=== PATIENT | female | born 1945 | race Caucasian/White ===

== ENCOUNTER 2018-11-16 09:44 | Day surgery (SDC) | payer MEDICARE, OTHER ==
--- NOTE | 2018-11-01 13:37 | CR ---
DATE OF CONSULTATION: 10/31/[address] Hannah Aguirre for a dilation and curettage (D and C) [facility] 11/16/[address] Aguirre: Thank you for asking me to see Ms. Ondina Todd in consultation prior to her hysteroscopy D and C. As you know, Ms. Todd is a 72-year-old female who has enjoyed quite good health but has a history of osteoporosis, nephrolithiasis, hyperlipidemia, who developed breakthrough bleeding. In December of 2017, the patient was treated with natural estrogen pellets with significant improvement in her hot flashes, night sweats, insomnia, and dyspareunia. In February of 2018, she started having breakthrough bleeding and saw a bicycle inspector in [place], had a uterine biopsy which was benign, but the endometrial lining was thickened. A repeat ultrasound was ordered from her [facility] provider 09/19/2018 with thickened endometrium, fluid in the endocervical canal, possible endocervical polyp. The patient reports her breakthrough bleeding has resolved. She has had no further bleeding since mid-September. The patient is very fit, walking four miles a day with no chest pain, palpitations, syncope, presyncope. The patient also consulted with Dr. Aguirre regarding her stress incontinence and is starting physical therapy in [place] on November 29. The patient had been having right low back pain radiating to her right lower extremity. Had a physical therapy times 3 weeks with resolution of her pain. Maintains her stretches, doing them several times a week. The patient has nephrolithiasis. She has had no flank pain or hematuria. The patient has prehypertension. Denies chest pain or palpitations. The patient had rectal bleeding March 2018 with a drop in her hemoglobin from 12 to 10, ultimately felt to be related to hemorrhoids. She has had no recurrent bleeding. The patient has essential tremor of her head, chronic, stable, and does not bother her. Worse when she is tired or stressed. The patient otherwise denies any fevers or chills, chest pain or shortness of breath, nausea, vomiting, change of bowel. PAST MEDICAL HISTORY: 1. Hyperlipidemia. 2. Hyperglycemia. 3. Prehypertension. 4. Adenomatous colonic polyps with last colonoscopy being 08/23/2017. Recommendation to repeat 5 years. 5. Osteoporosis. The patient is on alendronate. Previous drug holidays. 6. Fibrocystic breast disease. 7. History of breakthrough bleeding on hormone replacement therapy (HRT). 8. Atypical chest pain. 9. Reactive airway disease, positive methacholine challenge 2003. 10. Nephrolithiasis 2012 with a recurrence in 2015. 11. Goiter. Negative biopsy times two in 2007. Return as needed. 12. Essential tremor. 13. Pneumonia 02/03/2018. 14. Rectal bleeding March 2018 with sigmoidoscopy showing only hemorrhoids. 15. Breakthrough bleeding February 2018 with negative endometrial biopsy, started after being on natural estrogen pellet. MEDICATIONS: She is on alendronate 70 mg weekly, calcium plus D supplement, a vitamin for bone, hair, nail. She has no known drug allergies. SOCIAL HISTORY: Retired. Never smoked. Alcohol occasionally. FAMILY HISTORY: Father hypertension, hyperlipidemia, of a stroke at 102. Mother had hypertension, hyperlipidemia, dementia, congestive heart failure (CHF), heart attack, of CHF at 94. A brother hypertension. Sister hypertension, hyperlipidemia, emphysema, essential tremor, and a premature heart attack at 58. PHYSICAL EXAMINATION: No acute distress. Vital signs are weight 118 with a body mass index (BMI) of 20, oxygen (O2) saturation after exertion 96%, blood pressure 112/68 with a heart rate of 65. HEENT examination: Head is normocephalic. Neck is supple. Pupils equal, reactive to light. Extraocular movements are intact. She wears eyeglasses. She has a scant amount of ceruminosis. Tongue is midline. Posterior pharynx without inflammation. Neck is supple. No thyromegaly, jugular venous distention (JVD), carotid bruits. Respiratory: Clear to auscultation and percussion. Cardiovascular: Regular rate and rhythm. No murmur, rub, gallop. Abdomen: Normoactive bowel sounds, soft, nontender. No hepatosplenomegaly. Extremities: No cyanosis, clubbing, or edema. She has mild to moderate OA changes of the distal interphalangeal (DIP) joints. Dermatologic: Multiple seborrheic keratoses. Gynecologic: Deferred. Neurologic: Alert and oriented. Head tremor not appreciated. LABORATORY DATA: Electrocardiogram (EKG) 10/31/2018, normal sinus rhythm, rate of 67, normal [place], QRS, QTC, late R-wave progression, some repolarization changes but no atrial or ventricular hypertrophy. 10/31/2018, she has a normal CBC med profile. IMPRESSION: Ms. Ondina Todd is a 72-year-old female with multiple cardiovascular risk factors, including prehypertension, hyperglycemia, hyperlipidemia, and age. Has no signs or symptoms indicative of cardiovascular ischemia. [place] to be optimized and at low risk for cardiovascular complications for the proposed surgical intervention which can be minimized by the following: PROBLEMS: 1. Prehypertension. Diet, exercise, salt restriction. 2. Hyperglycemia. Diet, exercise, carbohydrate restriction. 3. Hyperlipidemia. High ratios. Continue to monitor. 4. Essential tremor, stable. Minimizes caffeine. 5. Leukopenia, improved, within normal limits. 6. Nephrolithiasis. Push fluids. No recurrence. 7. Stress incontinence. To start physical therapy in November. 8. Colonic polyps. Last colonoscopy in 2018. Repeat 5 years. 9. Hemorrhoidal bleed. No further recurrence. 10. Postmenopausal bleeding, resolved. Await hysteroscopy and D and C. 11. Osteoporosis. Hold alendronate calcium until the a.m. of surgery. 12. Low back pain, right sciatica. Continue home regimen. HEALTH MAINTENANCE: She has already had her flu shot. Thank you very much for this consultation. Please call with questions or concerns.
[~2018-11-16] VITALS: Ht 160 cm; Wt 52.8 kg
[~2018-11-16 09:44] MED LIST: ALEN70TA74 PO; ASPI81TA26 PO; CALC-190 PO; HAIR1CHW PO; LIDOCAINE 1% MDV 20ML VIAL SQ PRN; LR 1,000 ML IV ONE
[2018-11-16] MEDS ORDERED: KETOROLAC 60 MG/2 ML VIAL (J1885) As Ordered ONE ×2 (10:03→10:08)
[2018-11-16] MEDS ORDERED: METOCLOPRAMIDE INJ 10MG/2ML VIAL (J2765) As Ordered ONE (10:03)
[2018-11-16] MEDS ORDERED: dexameTHASONE 4 MG/ML 1ML VIAL (J1100) As Ordered ONE (10:03)
[2018-11-16] MEDS ORDERED: PROPOFOL 200 MG/20 ML VIAL As Ordered ONE (10:09)
[2018-11-16] MEDS ORDERED: LIDOCAINE 2% INJ 100 MG/5 ML SDV (FOR ANES.) As Ordered ONE (10:09)
[2018-11-16] MEDS ORDERED: MIDAZOLAM INJ 2 MG/2 ML VIAL (J2250) As Ordered ONE (11:04)
[2018-11-16] MEDS ORDERED: fentaNYL 100 MCG/2 ML INJECTION (J3010) As Ordered ONE (11:05)
[2018-11-16] MEDS ORDERED: ONDANSETRON 4MG/2ML VIAL (J2405) As Ordered ONE (12:07)
[2018-11-16] MEDS ORDERED: oxyCODONE 5MG TAB PO PRN (12:45)
[2018-11-16] MEDS ORDERED: METOCLOPRAMIDE INJ 10MG/2ML VIAL (J2765) IV PRN (12:45)
[2018-11-16] MEDS ORDERED: fentaNYL 100 MCG/2 ML INJECTION (J3010) IV PRN (12:45)
[2018-11-16] MEDS ORDERED: IBUPROFEN 600 MG TAB PO PRN (12:45)
[2018-11-16] MEDS ORDERED: LR 1,000 ML IV SCH ×2 (12:45)
[2018-11-16] MEDS ORDERED: ONDANSETRON 4MG/2ML VIAL (J2405) IV PRN (12:45)
--- NOTE | 2018-11-16 13:15 | RO ---
DATE OF SURGERY: 11/16/2018 PREOPERATIVE DIAGNOSES AND INDICATION FOR SURGERY: Postmenopausal bleeding and abnormal sonogram. POSTOPERATIVE DIAGNOSES: Postmenopausal bleeding and abnormal sonogram. PROCEDURE: Dilation and curettage (D and C), hysteroscopy, MyoSure resection. SURGEON: Hannah Aguirre MD PRICING SPECIALIST: ANESTHESIA: Laryngeal mask airway (LMA). BRIEF DESCRIPTION OF PROCEDURE AND FINDINGS: Ondina was brought to the operating room, where sufficient general LMA anesthesia was induced. She was prepped, draped, and positioned in the usual sterile fashion with the bladder emptied and the cervix grasped with a single-tooth tenaculum. Not unexpectedly, there is some mobility of the uterus under anesthesia. This atrophic cervix was carefully dilated in order to allow introduction of the MyoSure hysteroscope, following which the endometrial cavity was visualized, and some overgrowth of the endometrium was noted. There were some polypoid growths, but it seemed to be a fairly broad-spread overgrowth, not tremendously vascular __tissue____ but definitely more than is expected in a 72-year-old. MyoSure resection was carried out, as documented in the photographs. We were able to really resect the majority of the endometrium and some of the myometrial tissue, as well; and then curettage was carried out, and then the procedure was ended with all of that tissue sent to pathology, of course. ESTIMATED BLOOD LOSS FOR THE PROCEDURE: Maybe 3 mL. FLUID REPLACEMENT: Crystalloid. COMPLICATIONS: None. CONDITION AND DISPOSITION: Ondina tolerated the procedure well and was recovering in the recovery room in good condition. KAYLEN
[2018-11-16 13:40] VITALS: BP 134/61
== END 2018-11-16 13:50 | disposition home or self-care (01) ==
LOC: M SDC 09:44
PROVIDERS: ATTEND Obstetrics & Gynecology
DX: N95.0 Postmenopausal bleeding (principal); N85.00 Endometrial hyperplasia, unspecified; M81.0 Age-related osteoporosis without current pathological fracture; G25.0 Essential tremor; Z79.899 Other long term (current) drug therapy
CPT/HCPCS: 58558; 88305; J1100; J1885; J2250; J2405; J3010

== ENCOUNTER → 2020-07-07 | Outpatient (CLI) | payer MEDICARE, OTHER ==
[~2020-07-07] MED LIST changes: -ALEN70TA74 PO; +ALEN70TA82 PO; -LIDOCAINE 1% MDV 20ML VIAL SQ PRN; -LR 1,000 ML IV ONE
--- NOTE | 2020-07-07 08:34 | REPMRS ---
Patient History The patient states she has not had a clinical breast exam in over a year. Patient is postmenopausal and is nulliparous. No known family history of cancer. Patient states no breast complaints today. Patient has signed MRS History Sheet. Digital Woman Screen Mammo: July 07, 2020 - Exam #: [id number] Bilateral CC and MLO view(s) were taken. Technologist: Lissette Danielson, Technologist Prior study comparison: July 05, 2019, bilateral digital mammo screening bilat, performed at [facility]. July 03, 2018, bilateral digital mammo screening bilat, performed at [facility]. July 01, 2017, bilateral digital mammo screening bilat, performed at [facility]. FINDINGS: The breast tissue is heterogeneously dense. This may lower the sensitivity of mammography. The Volpara volumetric breast density category is: C. There are stable benign calcifications and a a small intramammary lymph node in the upper outer quadrant on the right. Vascular calcification is observed There is a moderate amount of heterogeneously dense fibroglandular tissue which is fairly symmetric. There is no interval development of dominant mass, architectural distortion, or grouped microcalcification typical of malignancy. There has been no change in the appearance of the mammogram from the prior studies. 3-D tomosynthesis shows no additional findings. Assessment: BI-RADS/ACR category 2 mammogram. Benign Findings. Recommendation Routine screening mammogram of both breasts in 1 year (for women over age 40). This patient's [facility] Lifetime Breast Cancer RIsk is estimated at 3.5 %. This mammogram was interpreted with the aid of an FDA-approved computer-aided dectection system. Electronically Signed By: Taras Wang MD 07/07/20 0834
== END ==
LOC: M WHC 07:50
PROVIDERS: ATTEND Internal Medicine
DX: Z12.31 Encounter for screening mammogram for malignant neoplasm of breast (principal)

== ENCOUNTER → 2021-07-08 | Outpatient (CLI) | payer MEDICARE, OTHER | LOC: M WHC 07:20 | PROVIDERS: ATTEND Obstetrics & Gynecology | DX: Z91.89 Other specified personal risk factors, not elsewhere classified (principal); N85.4 Malposition of uterus; N85.8 Other specified noninflammatory disorders of uterus; Z12.31 Encounter for screening mammogram for malignant neoplasm of breast; M81.0 Age-related osteoporosis without current pathological fracture; M85.89 Other specified disorders of bone density and structure, multiple sites ==

== ENCOUNTER → 2021-07-08 | Outpatient (CLI) | payer MEDICARE, OTHER | LOC: M WHC 07:22 | PROVIDERS: ATTEND Internal Medicine | DX: Z12.31 Encounter for screening mammogram for malignant neoplasm of breast (principal); M81.0 Age-related osteoporosis without current pathological fracture; M85.89 Other specified disorders of bone density and structure, multiple sites ==

== ENCOUNTER → 2021-07-20 | Outpatient (REF) | payer MEDICARE, OTHER ==
[2021-07-21 13:18] LABS: PERCENT SATURATION 32.4 % (13.2-45.0)
== END ==
LOC: M LAB REF 12:03
PROVIDERS: ATTEND Internal Medicine
DX: M54.41 Lumbago with sciatica, right side (principal); D64.9 Anemia, unspecified

== ENCOUNTER → 2021-07-28 | Outpatient (REF) | payer MEDICARE, OTHER | LOC: M SFHCDERM 16:30 | PROVIDERS: ATTEND Nurse Practitioner Family | DX: L57.0 Actinic keratosis (principal) | CPT/HCPCS: 11102; 17000; 88305; G0463 ==

== ENCOUNTER → 2021-08-19 | Outpatient (REF) | payer MEDICARE, OTHER ==
[2021-08-21 12:10] LABS: ANTINUCLEAR ANTIBODIES DIRECT Negative (Negative)
== END ==
LOC: M LAB REF 16:35
PROVIDERS: ATTEND Internal Medicine
DX: D69.6 Thrombocytopenia, unspecified (principal); M81.0 Age-related osteoporosis without current pathological fracture

== ENCOUNTER → 2021-09-15 | Outpatient (CLI) | payer MEDICARE, OTHER ==
[2021-09-15 10:17] LABS: BASO % 0.6 % (0.0-1.0); EOS # 0.1 10^3/uL (0.0-0.5); EOS % 1.5 % (0.0-3.0); HEMATOCRIT 41.9 % (36.0-47.0); HEMOGLOBIN 13.6 g/dl (12.0-15.5); LYMPH # 0.6 10^3/uL (1.5-5.0); LYMPH % 18.7 % (24.0-44.0); MEAN CORPUSCULAR HEMOGLOBIN 29.2 pg (27.0-33.0); MEAN CORPUSCULAR HGB CONC 32.5 g/dl (32.0-36.5); MEAN CORPUSCULAR VOLUME 89.9 fl (80.0-96.0); MONO # 0.3 10^3/uL (0.0-0.8); MONO % 8.8 % (2.0-8.0); NEUTROPHILS # 2.4 10^3/uL (1.5-8.5); NEUTROPHILS % 70.1 % (36.0-66.0); RED BLOOD COUNT 4.66 10^6/uL (4.00-5.40); WHITE BLOOD COUNT 3.4 10^3/uL (4.0-10.0)
[2021-09-15 11:02] LABS: PLATELET COUNT, AUTOMATED 76 10^3/uL (150-450)
[2021-09-15 12:16] LABS: HEPATITIS B SURFACE ANTIBODY NEGATIVE (POSITIVE); HEPATITIS C VIRUS ABY INDEX < 0.0 INDEX (<0.8); HIV 1&2 SCREEN CENTAUR NEGATIVE (NEGATIVE)
== END ==
LOC: M PLALAB 08:48
PROVIDERS: ATTEND Internal Medicine Hematology
DX: D69.3 Immune thrombocytopenic purpura (principal)

== ENCOUNTER → 2021-09-21 | Outpatient (REF) | payer MEDICARE, OTHER | LOC: M SFHCPLAZ 10:32 | PROVIDERS: ATTEND Internal Medicine Hematology | DX: D69.3 Immune thrombocytopenic purpura (principal) ==

== ENCOUNTER → 2021-11-16 | Outpatient (REF) | payer MEDICARE, OTHER ==
[2021-11-16 12:59] LABS: APPEARANCE, URINE MANUAL CLEAR (CLEAR); BILIRUBIN, URINE MANUAL NEGATIVE (NEGATIVE); BLOOD URINE MANUAL TRACE (NEGATIVE); COLOR, URINE MANUAL YELLOW (YELLOW); GLUCOSE, URINE (UA) MANUAL NEGATIVE (NEGATIVE); KETONE, URINE MANUAL NEGATIVE (NEGATIVE); LEUKOCYTE ESTERASE, URINE MAN NEGATIVE (NEGATIVE); NITRITE, URINE MANUAL NEGATIVE (NEGATIVE); PROTEIN, URINE MANUAL NEGATIVE (NEGATIVE); UROBILINOGEN, URINE MANUAL NORMAL (NORMAL)
[2021-11-16 13:08] LABS: INR 0.9; PROTHROMBIN TIME 12.6 SECONDS (12.7-14.5)
[2021-11-16 13:09] LABS: BACTERIA, URINE SMALL AMOUNT; HYALINE CAST, URINE NONE SEEN /lpf (0-1); PARTIAL THROMBOPLASTIN TIME 28.1 SECONDS (25.9-37.0); RBC, URINE 0-1 /hpf (0-3); SQUAMOUS EPITHELIAL CELL URINE SMALL AMOUNT /hpf (SMALL AMT); WBC, URINE 0-1 /hpf (0-3)
== END ==
LOC: M LAB REF 11:51
PROVIDERS: ATTEND Internal Medicine
DX: Z01.818 Encounter for other preprocedural examination (principal)

== ENCOUNTER → 2021-12-28 | Outpatient (CLI) | payer MEDICARE, OTHER | LOC: M LABSMTC 10:15 | PROVIDERS: ATTEND Anesthesiology | DX: Z01.812 Encounter for preprocedural laboratory examination (principal); Z11.52 Encounter for screening for COVID-19 ==

== ENCOUNTER 2021-12-30 13:25 | Day surgery (SDC) | payer MEDICARE, OTHER ==
[~2021-12-30] VITALS: Ht 161.3 cm; Wt 54.8 kg
[2021-12-30] MEDS ORDERED: LR 1,000 ML IV SCH ×2 (13:50→16:00)
[2021-12-30 14:11] LABS: HEMATOCRIT 41.7 % (36.0-47.0); HEMOGLOBIN 13.7 g/dl (12.0-15.5); MEAN CORPUSCULAR HEMOGLOBIN 28.8 pg (27.0-33.0); MEAN CORPUSCULAR HGB CONC 32.9 g/dl (32.0-36.5); MEAN CORPUSCULAR VOLUME 87.8 fl (80.0-96.0); RED BLOOD COUNT 4.75 10^6/uL (4.00-5.40)
[2021-12-30 14:35] LABS: PLATELET COUNT, AUTOMATED 76 10^3/uL (150-450)
[2021-12-30] MEDS ORDERED: fentaNYL 100 MCG/2 ML INJECTION As Ordered ONE (15:18)
[2021-12-30] MEDS ORDERED: propofoL 200 MG/20 ML VIAL As Ordered ONE (15:18)
[2021-12-30] MEDS ORDERED: MIDAZOLAM INJ 2MG/2ML VIAL (J2250 PER 1MG) As Ordered ONE (15:18)
[2021-12-30] MEDS ORDERED: LIDOCAINE 2% 100MG/5ML SDV (FOR ANES.) As Ordered ONE (15:18)
[2021-12-30] MEDS ORDERED: dexameTHASONE 4 MG/ML 1ML VIAL (J1100 PER 1MG) As Ordered ONE (15:18)
[2021-12-30] MEDS ORDERED: ONDANSETRON 4MG 2ML VIAL As Ordered ONE (15:18)
[2021-12-30] MEDS ORDERED: ACETAMINOPHEN 1000MG 100ML IV BAG As Ordered ONE (15:27)
[2021-12-30] MEDS ORDERED: LABETALOL 100MG/20ML VIAL As Ordered ONE (15:43)
[2021-12-30] MEDS ORDERED: KETOROLAC 30 MG/ML 1ML VIAL IV SCH (16:00)
[2021-12-30] MEDS ORDERED: METOCLOPRAMIDE INJ 10MG/2ML VIAL (J2765 PER 1) IV PRN (16:00)
[2021-12-30] MEDS ORDERED: fentaNYL 100 MCG/2 ML INJECTION IV PRN (16:00)
[2021-12-30] MEDS ORDERED: oxyCODONE 5MG TAB PO PRN (16:00)
[2021-12-30] MEDS ORDERED: ONDANSETRON 4MG 2ML VIAL IV PRN (16:00)
[2021-12-30] MEDS ORDERED: MEPERIDINE INJ 25 MG/ML VIAL (J2175) As Ordered ONE (16:09)
[2021-12-30] MEDS: MEPERIDINE INJ 25 MG/ML VIAL (J2175) IV PRN ×2 (16:15→16:35)
[2021-12-30 17:15] VITALS: BP 174/69
== END 2021-12-30 17:18 | disposition home or self-care (01) ==
LOC: M SDC 13:25
PROVIDERS: ATTEND Obstetrics & Gynecology
DX: N84.0 Polyp of corpus uteri (principal); N85.00 Endometrial hyperplasia, unspecified; M81.0 Age-related osteoporosis without current pathological fracture; D69.6 Thrombocytopenia, unspecified; Z79.899 Other long term (current) drug therapy; G25.0 Essential tremor
CPT/HCPCS: 36415; 58558; 85027; 85049; 85055; 86850; 86900; 86901; 88305; J0131; J1100; J1885; J2175; J2250; J2405; J3010

== ENCOUNTER → 2022-07-13 | Outpatient (CLI) | payer MEDICARE, OTHER | LOC: M WHC 07:53 | PROVIDERS: ATTEND Internal Medicine | DX: Z12.31 Encounter for screening mammogram for malignant neoplasm of breast (principal); N63.20 Unspecified lump in the left breast, unspecified quadrant ==

== ENCOUNTER → 2022-07-27 | Outpatient (CLI) | payer MEDICARE, OTHER | LOC: M WHC 08:52 | PROVIDERS: ATTEND Internal Medicine | DX: R92.2 Inconclusive mammogram (principal); N63.20 Unspecified lump in the left breast, unspecified quadrant | CPT/HCPCS: 76642; 77065; G0279 ==

== ENCOUNTER 2023-06-20 09:39 | Day surgery (SDC) | payer MEDICARE, OTHER ==
[~2023-06-20] VITALS: Ht 160 cm; Wt 48.5 kg
[2023-06-20] MEDS: NS 1,000 ML IV ONE (10:04)
[2023-06-20] MEDS ORDERED: LIDOCAINE 2% MDV 20ML VIAL As Ordered ONE (12:08)
[2023-06-20] MEDS ORDERED: propofoL 200 MG/20 ML VIAL As Ordered ONE (12:08)
[2023-06-20 12:33] VITALS: TEMP 97
[2023-06-20 12:59] VITALS: BP 131/74; O2SAT 98
== END 2023-06-20 13:01 | disposition home or self-care (01) ==
LOC: M OPP 09:39
PROVIDERS: ATTEND Internal Medicine Gastroenterology
DX: Z12.11 Encounter for screening for malignant neoplasm of colon (principal); K63.5 Polyp of colon; K57.30 Diverticulosis of large intestine without perforation or abscess without bleeding; K64.0 First degree hemorrhoids; Z86.010 Personal history of colon polyps

== ENCOUNTER → 2023-08-01 | Outpatient (CLI) | payer MEDICARE, OTHER | LOC: M WHC 07:44 | PROVIDERS: ATTEND Internal Medicine | DX: Z12.31 Encounter for screening mammogram for malignant neoplasm of breast (principal); M85.89 Other specified disorders of bone density and structure, multiple sites; R92.333 Mammographic heterogeneous density, bilateral breasts; M81.0 Age-related osteoporosis without current pathological fracture ==